=== PATIENT | male | born 1945 | race Caucasian/White ===

== ENCOUNTER 2016-10-01 11:05 | Observation (INO) ==
--- NOTE | 2016-10-01 11:32 | Emergency Department Note ---
Disposition Clinical Impression: Bradycardia with 41-50 beats per minute Disposition: Admitted As Inpatient Condition: Fair Referrals: Yamini Shepherd MD [Primary Care Provider] - Forms: ED Satisfaction Letter Time of Disposition: 13:57 (Jeffrey radhika [facility]) General Adult HPI - General Chief complaint: ED Back Pain/Injury Stated complaint: back pain, pale and clammy Time Seen by Provider: 10/01/16 11:15 Source: patient, other (caregiver) Mode of arrival: ambulatory Limitations: no limitations, altered mental status (DD) Nursing Notes Reviewed: Yes Vital Signs Reviewed: Yes - History of Present Illness HPI Narrative: Patient unable to provide much history in regards to what is going on caregiver states that they are concerned because he became pale and diaphoretic when he stood up they think that he appears to be bloated around his ostomy site they are unable to tell me what his sugars are not family check him once a week they deny noting as if his blood pressure is up or down the caregiver that is with him states I do not know if his colostomy is working I only see him in the late morning she provides very little additional history Onset (ago): day(s) (-2) Location: abdomen Radiation: non-radiation Pain Scale: 0 Consistency: constant Improves with: nothing Worsens with: nothing Associated symptoms: Reports: diaphoresis, nausea/vomiting, syncope, weakness. Denies: confusion, chest pain, cough, fever/chills, headaches, loss of appetite , malaise, seizure, shortness of breath Treatments Prior to Arrival: none - Related Data Home Medications Medication Instructions Recorded Confirmed Acetaminophen [Tylenol] 650 mg PO Q4HR PRN 04/21/15 10/10/15 Alendronate Sodium [Fosamax] 70 mg PO TH 04/21/15 10/10/15 Atorvastatin [Lipitor] 40 mg PO HS 04/21/15 10/10/15 Calcium Carbonate/Vitamin D2 1 each PO DAILY 04/21/15 10/10/15 [Oyster Shell Calcium-Vit D Tab] Cholecalciferol (Vitamin D3) 1,000 unit PO DAILY 04/21/15 10/10/15 [Vitamin D3] Docusate Sodium [Colace] 200 mg PO BID 04/21/15 10/10/15 FLUoxetine HCl [Prozac] 20 mg PO DAILY 04/21/15 10/10/15 Folic Acid 1 mg PO DAILY 04/21/15 10/10/15 Furosemide [Lasix] 40 mg PO DAILY 04/21/15 10/10/15 Gemfibrozil [Lopid] 600 mg PO BID 04/21/15 10/10/15 Ibuprofen [Motrin] 400 mg PO Q4HR PRN 04/21/15 10/10/15 Lisinopril [Zestril] 10 mg PO DAILY 04/21/15 10/10/15 Magnesium Hydroxide [Milk of 30 ml PO DAILY PRN 04/21/15 10/10/15 Magnesia] Metformin HCl [Glucophage] 1,000 mg PO BID 04/21/15 10/10/15 Polyethylene Glycol 3350 [MiraLAX 15 gm PO BID PRN #0 04/21/15 10/10/15 bowel prep] carBAMazepine [Tegretol] 400 mg PO HS 04/21/15 10/10/15 clonazePAM [Klonopin] 0.5 mg PO BID 04/21/15 10/10/15 Albuterol Neb [Proventil Neb] 2.5 mg IH Q4H PRN 10/10/15 10/10/15 Mylanta 30 ml PO Q4H PRN 10/10/15 10/10/15 [place]-3 Fatty Acids/Fish Oil 1 each PO BID 10/10/15 10/10/15 [[place]-3 Fish Oil 1,000 mg Sfgl] carBAMazepine [Tegretol] 200 mg PO QAM 10/10/15 10/10/15 Cariprazine HCl [Vraylar] 1.5 mg PO 10/01/16 Previous Rx's Medication Instructions Recorded Aspirin 81 mg PO DAILY #30 tab.chew 04/29/15 Metoprolol XL (24 HR) Succ [Toprol 12.5 mg PO DAILY #30 tab.er.24h 04/29/15 Xl] Allergies Allergy/AdvReac Type Severity Reaction Status Date / Time No Known Allergies Allergy Verified 10/10/15 09:12 All systems ED: reviewed and negative except as stated. Review of Systems: As Per HPI Limitations: ROS unobtainable due to patients medical condition (DD and very poor historian caregiver poor on supplemental information) Constitutional: Reports: weakness. Denies: fever, chills Eyes: Denies: eye pain ENT ED: Denies: ear pain Cardiovascular: Reports: syncope. Denies: chest pain, palpitations, dyspnea on exertion Respiratory: Denies: cough, dyspnea, wheezes Gastrointestinal: Reports: abdominal pain, nausea. Denies: vomiting Genitourinary: Denies: urgency, dysuria, frequency Musculoskeletal: Denies: back pain Integumentary: Denies: rash, abrasion Neurological: Denies: headache Psychiatric: Denies: anxiety Endocrine: Denies: fatigue Hematological/Lymphatic: Denies: easy bleeding Allergic/Immunologic: Denies: facial swelling Past Medical History - Past Medical History Attestation: Yes The following information was validated with the patient. Source: patient, old records reviewed, nursing notes reviewed Medical history: Reports: asthma, coronary artery disease, diabetes, myocardial infarction, osteoporosis, other Surgical history: Reports: colostomy Psychiatric history: Reports: anxiety, bipolar, other - Social History Smoking Status: Never smoker Smokeless Tobacco Status: No Alcohol use: Reports: none Drug use: Reports: none Physical Exam - General Limitations: altered mental status (DD) General appearance: alert, in no apparent distress - Head Head exam: atraumatic, normocephalic, normal inspection - Eye Eye exam: Present: normal appearance, PERRL, EOMI - ENT ENT exam: normal exam, normal oropharynx, mucous membranes moist, TM's normal bilaterally, normal external ear exam - Neck Neck exam: Present: normal inspection, full ROM, trachea midline - Chest Chest inspection: Present: normal inspection, symmetric chest wall rise - Respiratory Respiratory exam: Present: normal lung sounds bilaterally - Cardiovascular Cardiovascular exam: Present: regular rate, normal rhythm, normal heart sounds - Abdominal Exam Abdominal exam: Present: soft, tenderness, distention, guarding, hypoactive bowel sounds. Absent: normal bowel sounds, mass, pulsatile mass - Extremities Exam Extremities exam: Present: normal inspection, full ROM, normal capillary refill , other (dwight hose Left leg). Absent: tenderness, joint swelling - Expanded Lower Extremity Exam Neurovascular/Tendon exam: Present: normal capillary refill, normal fine/light touch Gait: observed and normal - Back Exam Back exam: Present: normal inspection, full ROM. Absent: muscle spasm - Neurological Exam Neurological exam: Present: alert, CN II-XII intact - Psychiatric Psychiatric exam: Present: normal affect, normal mood - Skin Skin exam: Present: warm, dry, intact, normal color Course Course Narrative: 70-year-old male individual coming to the emergency room with a difficult history to obtain other than he is had episodes of diaphoresis and near syncope at the care facility he states that his back hurts but they tell me that he says this all the time carekeepers state that they noted the area around his ostomy site appears to be bloated and distended but then states belly appears to be that well as result family physician has not been contacted transferred to us for further management - Reevaluation(s) Reevaluation #1: he continues to be bradycardic with rates less than 60 hovering between 44 and 54 and evidence shows congestive heart failure as result will admitted for observation and make sure that there is no other underlying etiology serial enzymes because he is developmentally disabled unable to provide us adequate history only thing he can say is that he wants crackers as result admitted for observation Vital Signs Temperature 96.1 F L 10/01/16 11:07 Pulse Rate 50 10/01/16 11:07 Respiratory Rate 18 10/01/16 11:07 Blood Pressure 162/93 10/01/16 11:07 O2 Sat by Pulse Oximetry 95 10/01/16 11:07 Temperature 96.1 F L 10/01/16 11:31 Pulse Rate 54 10/01/16 13:14 Respiratory Rate 18 10/01/16 13:14 Blood Pressure 115/79 10/01/16 13:14 O2 Sat by Pulse Oximetry 94 10/01/16 13:14 Oxygen Delivery Oxygen Delivery Room Air Medical Decision Making - Medical Records Medical records reviewed: Yes I reviewed the patient's medical records. - Lab Data Lab results reviewed: Yes I reviewed the patient's lab results. Result diagrams: 10/01/16 11:44 10/01/16 11:44 Lab Results 10/01/16 10/01/16 10/01/16 Range/Units 11:44 11:44 11:44 WBC 6.9 (4.3-11.1) K/mcL RBC 4.06 L (4.19-5.50) M/mcL Hgb 12.7 L (12.9-16.9) g/dL Hct 35.7 L (37.5-50.1) % MCV 87.9 (83.0-100.0) fL MCH 31.3 (28.0-33.3) pg MCHC 35.6 H (31.6-35.5) g/dL RDW 14.2 (11.5-14.5) % Plt Count 150 (140-400) K/mcL MPV 10.0 (9.4-12.4) fL Immature Gran % 1.3 (0-4) % Seg Neutrophils % 71.0 % Lymphocytes % 17.1 % Monocytes % 7.4 % Eosinophils % 2.8 % Basophils % 0.4 % Neutrophils # 4.9 (1.6-8.9) K/mcL Lymphocytes # 1.2 (0.6-4.6) K/mcL Monocytes # 0.5 (0.0-1.3) K/mcL Eosinophils # 0.2 (0.0-0.6) K/mcL Basophils # 0.0 (0.0-0.2) K/mcL PT (9.4-12.1) Seconds INR APTT 35.5 (26.0-36.0) Seconds VBG Lactic Acid (0.5-2.2) mmol/L Sodium 130 L (136-145) mEq/L Potassium 4.5 (3.5-4.5) mEq/L Chloride 93 L (98-109) mEq/L Carbon Dioxide 25 (19-29) mEq/L BUN 16 (8-26) mg/dL Creatinine 1.11 (0.72-1.25) mg/dL Est GFR ( Amer) > 60 (> 60) Est GFR (Non-Af Amer) > 60 (> 60) BUN/Creatinine Ratio 14 (6-26) Glucose 134 H (70-99) mg/dL Calculated Osmolality 273 L (280-300) Calcium 9.2 (8.6-10.8) mg/dL Total Bilirubin 0.4 (0.2-1.2) mg/dL AST 43 H (5-34) Units/L ALT 32 (0-55) Units/L Alkaline Phosphatase 47 (38-126) Units/L Troponin I (0-0.03) ng/mL B-Natriuretic Peptide (0-100) pg/mL Serum Total Protein 7.0 (6.0-8.3) g/dL Albumin 3.9 (3.5-5.0) g/dL Globulin 3.1 (2.4-3.5) g/dL Albumin/Globulin Ratio 1.3 (1.1-2.2) Lipase (8-78) Units/L TSH (0.350-4.840) mcIU/mL Urine Color (Yellow) Urine Clarity (Clear) Urine pH (5.0-8.0) pH Units Ur Specific [place] (1.010-1.025) Urine Protein (Neg-Trace) mg/dL Urine Glucose (UA) (Normal) mg/dL Urine Ketones (Negative) mg/dL Urine Blood (Negative) Urine Nitrite (Negative) Urine Bilirubin (Negative) Urine Urobilinogen (Normal) mg/dL Ur Leukocyte Esterase (Negative) Ur Culture Indicated? (NO) Carbamazepine (4.0-12.0) mcg/mL 10/01/16 10/01/16 10/01/16 Range/Units 11:44 11:44 11:44 WBC (4.3-11.1) K/mcL RBC (4.19-5.50) M/mcL Hgb (12.9-16.9) g/dL Hct (37.5-50.1) % MCV (83.0-100.0) fL MCH (28.0-33.3) pg MCHC (31.6-35.5) g/dL RDW (11.5-14.5) % Plt Count (140-400) K/mcL MPV (9.4-12.4) fL Immature Gran % (0-4) % Seg Neutrophils % % Lymphocytes % % Monocytes % % Eosinophils % % Basophils % % Neutrophils # (1.6-8.9) K/mcL Lymphocytes # (0.6-4.6) K/mcL Monocytes # (0.0-1.3) K/mcL Eosinophils # (0.0-0.6) K/mcL Basophils # (0.0-0.2) K/mcL PT 13.7 H (9.4-12.1) Seconds INR 1.3 APTT (26.0-36.0) Seconds VBG Lactic Acid (0.5-2.2) mmol/L Sodium (136-145) mEq/L Potassium (3.5-4.5) mEq/L Chloride (98-109) mEq/L Carbon Dioxide (19-29) mEq/L BUN (8-26) mg/dL Creatinine (0.72-1.25) mg/dL Est GFR ( Amer) (> 60) Est GFR (Non-Af Amer) (> 60) BUN/Creatinine Ratio (6-26) Glucose (70-99) mg/dL Calculated Osmolality (280-300) Calcium (8.6-10.8) mg/dL Total Bilirubin (0.2-1.2) mg/dL AST (5-34) Units/L ALT (0-55) Units/L Alkaline Phosphatase (38-126) Units/L Troponin I 0.00 (0-0.03) ng/mL B-Natriuretic Peptide 105 H (0-100) pg/mL Serum Total Protein (6.0-8.3) g/dL Albumin (3.5-5.0) g/dL Globulin (2.4-3.5) g/dL Albumin/Globulin Ratio (1.1-2.2) Lipase (8-78) Units/L TSH (0.350-4.840) mcIU/mL Urine Color (Yellow) Urine Clarity (Clear) Urine pH (5.0-8.0) pH Units Ur Specific [place] (1.010-1.025) Urine Protein (Neg-Trace) mg/dL Urine Glucose (UA) (Normal) mg/dL Urine Ketones (Negative) mg/dL Urine Blood (Negative) Urine Nitrite (Negative) Urine Bilirubin (Negative) Urine Urobilinogen (Normal) mg/dL Ur Leukocyte Esterase (Negative) Ur Culture Indicated? (NO) Carbamazepine (4.0-12.0) mcg/mL 10/01/16 10/01/16 10/01/16 Range/Units 11:44 11:44 12:48 WBC (4.3-11.1) K/mcL RBC (4.19-5.50) M/mcL Hgb (12.9-16.9) g/dL Hct (37.5-50.1) % MCV (83.0-100.0) fL MCH (28.0-33.3) pg MCHC (31.6-35.5) g/dL RDW (11.5-14.5) % Plt Count (140-400) K/mcL MPV (9.4-12.4) fL Immature Gran % (0-4) % Seg Neutrophils % % Lymphocytes % % Monocytes % % Eosinophils % % Basophils % % Neutrophils # (1.6-8.9) K/mcL Lymphocytes # (0.6-4.6) K/mcL Monocytes # (0.0-1.3) K/mcL Eosinophils # (0.0-0.6) K/mcL Basophils # (0.0-0.2) K/mcL PT (9.4-12.1) Seconds INR APTT (26.0-36.0) Seconds VBG Lactic Acid 2.3 H (0.5-2.2) mmol/L Sodium (136-145) mEq/L Potassium (3.5-4.5) mEq/L Chloride (98-109) mEq/L Carbon Dioxide (19-29) mEq/L BUN (8-26) mg/dL Creatinine (0.72-1.25) mg/dL Est GFR ( Amer) (> 60) Est GFR (Non-Af Amer) (> 60) BUN/Creatinine Ratio (6-26) Glucose (70-99) mg/dL Calculated Osmolality (280-300) Calcium (8.6-10.8) mg/dL Total Bilirubin (0.2-1.2) mg/dL AST (5-34) Units/L ALT (0-55) Units/L Alkaline Phosphatase (38-126) Units/L Troponin I (0-0.03) ng/mL B-Natriuretic Peptide (0-100) pg/mL Serum Total Protein (6.0-8.3) g/dL Albumin (3.5-5.0) g/dL Globulin (2.4-3.5) g/dL Albumin/Globulin Ratio (1.1-2.2) Lipase 35 (8-78) Units/L TSH 1.478 (0.350-4.840) mcIU/mL Urine Color (Yellow) Urine Clarity (Clear) Urine pH (5.0-8.0) pH Units Ur Specific [place] (1.010-1.025) Urine Protein (Neg-Trace) mg/dL Urine Glucose (UA) (Normal) mg/dL Urine Ketones (Negative) mg/dL Urine Blood (Negative) Urine Nitrite (Negative) Urine Bilirubin (Negative) Urine Urobilinogen (Normal) mg/dL Ur Leukocyte Esterase (Negative) Ur Culture Indicated? (NO) Carbamazepine 7.5 (4.0-12.0) mcg/mL 10/01/16 Range/Units 12:52 WBC (4.3-11.1) K/mcL RBC (4.19-5.50) M/mcL Hgb (12.9-16.9) g/dL Hct (37.5-50.1) % MCV (83.0-100.0) fL MCH (28.0-33.3) pg MCHC (31.6-35.5) g/dL RDW (11.5-14.5) % Plt Count (140-400) K/mcL MPV (9.4-12.4) fL Immature Gran % (0-4) % Seg Neutrophils % % Lymphocytes % % Monocytes % % Eosinophils % % Basophils % % Neutrophils # (1.6-8.9) K/mcL Lymphocytes # (0.6-4.6) K/mcL Monocytes # (0.0-1.3) K/mcL Eosinophils # (0.0-0.6) K/mcL Basophils # (0.0-0.2) K/mcL PT (9.4-12.1) Seconds INR APTT (26.0-36.0) Seconds VBG Lactic Acid (0.5-2.2) mmol/L Sodium (136-145) mEq/L Potassium (3.5-4.5) mEq/L Chloride (98-109) mEq/L Carbon Dioxide (19-29) mEq/L BUN (8-26) mg/dL Creatinine (0.72-1.25) mg/dL Est GFR ( Amer) (> 60) Est GFR (Non-Af Amer) (> 60) BUN/Creatinine Ratio (6-26) Glucose (70-99) mg/dL Calculated Osmolality (280-300) Calcium (8.6-10.8) mg/dL Total Bilirubin (0.2-1.2) mg/dL AST (5-34) Units/L ALT (0-55) Units/L Alkaline Phosphatase (38-126) Units/L Troponin I (0-0.03) ng/mL B-Natriuretic Peptide (0-100) pg/mL Serum Total Protein (6.0-8.3) g/dL Albumin (3.5-5.0) g/dL Globulin (2.4-3.5) g/dL Albumin/Globulin Ratio (1.1-2.2) Lipase (8-78) Units/L TSH (0.350-4.840) mcIU/mL Urine Color Yellow (Yellow) Urine Clarity Clear (Clear) Urine pH 5.5 (5.0-8.0) pH Units Ur Specific [place] 1.015 (1.010-1.025) Urine Protein Negative (Neg-Trace) mg/dL Urine Glucose (UA) Normal (Normal) mg/dL Urine Ketones Negative (Negative) mg/dL Urine Blood Negative (Negative) Urine Nitrite Negative (Negative) Urine Bilirubin Negative (Negative) Urine Urobilinogen Normal (Normal) mg/dL Ur Leukocyte Esterase Negative (Negative) Ur Culture Indicated? NO (NO) Carbamazepine (4.0-12.0) mcg/mL - Radiology Data Radiology results reviewed: Yes I reviewed the patient's radiology results. ITS Impressions Abdomen/Pelvis CT 10/01/16 11:27 IMPRESSION: No significant abdominopelvic process demonstrated D/ / Tej Faye MD / eTj Faye MD Interpreting Provider: Tej Faye MD Chest X-Ray 10/01/16 11:27 IMPRESSION: Cardiomegaly with pulmonary vascular congestion centrally. No other acute process. D/ / John Valentin MD / John Valentin MD Interpreting Provider: John Valentin MD - EKG Data EKG #1 EKG attestation: Yes I reviewed and interpreted this EKG. EKG results narrative: EKG sinus bradycardia first-degree AV block with a prolonged TN incomplete bundle-branch block on the right rate 51 TN 223 QRS 105 DT 429 axis -18 Critical Care Time Critical Care Time: No
[2016-10-01 11:55] LABS: Basophils % 0.4 %; Eosinophils # 0.2 K/mcL (0.0-0.6); Eosinophils % 2.8 %; Hematocrit 35.7 % (37.5-50.1); Hemoglobin 12.7 g/dL (12.9-16.9); Immature Granulocytes % 1.3 % (0-4); Lymphocytes # 1.2 K/mcL (0.6-4.6); Lymphocytes % 17.1 %; Mean Corpuscular HGB Conc 35.6 g/dL (31.6-35.5); Mean Corpuscular Hemoglobin 31.3 pg (28.0-33.3); Mean Corpuscular Volume 87.9 fL (83.0-100.0); Monocytes # 0.5 K/mcL (0.0-1.3); Monocytes % 7.4 %; Neutrophils # 4.9 K/mcL (1.6-8.9); Platelet Count 150 K/mcL (140-400); Red Blood Count 4.06 M/mcL (4.19-5.50); Red Cell Distribution Width 14.2 % (11.5-14.5)
[2016-10-01 12:05] LABS: INR 1.3; Prothrombin Time 13.7 Seconds (9.4-12.1)
[2016-10-01 12:17] LABS: Alanine Aminotransferase 32 Units/L (0-55); Albumin 3.9 g/dL (3.5-5.0); Albumin/Globulin Ratio 1.3 (1.1-2.2); Alkaline Phosphatase 47 Units/L (38-126); Aspartate Amino Transferase 43 Units/L (5-34); BUN/Creatinine Ratio 14 (6-26); Bilirubin,Total 0.4 mg/dL (0.2-1.2); Blood Urea Nitrogen 16 mg/dL (8-26); Calcium 9.2 mg/dL (8.6-10.8); Carbon Dioxide 25 mEq/L (19-29); Chloride 93 mEq/L (98-109); Globulin 3.1 g/dL (2.4-3.5); Glucose 134 mg/dL (70-99); Osmolality,Calculated 273 (280-300); Potassium 4.5 mEq/L (3.5-4.5); Sodium 130 mEq/L (136-145); eGFR For African Americans > 60 (> 60); eGFR For Non-African Americans > 60 (> 60)
[2016-10-01 12:37] LABS: Thyroid Stimulating Hormone 1.478 mcIU/mL (0.350-4.840)
[2016-10-01] MEDS ORDERED: Bumetanide 1 MG/4 ML VIAL IVP ONE (12:48)
[2016-10-01 12:57] LABS: Bilirubin,Urine Negative (Negative); Blood,Urine Negative (Negative); Clarity,Urine Clear (Clear); Color,Urine Yellow (Yellow); Glucose,Urine (UA) Normal (Normal); Ketones,Urine Negative (Negative); Leukocyte Esterase,Urine Negative (Negative); Nitrite,Urine Negative (Negative); PH,Urine 5.5 pH Units (5.0-8.0); Protein,Urine Negative (Neg-Trace); Specific Gravity,Urine 1.015 (1.010-1.025); Urobilinogen,Urine Normal (Normal)
[2016-10-01] MEDS ORDERED: Mag Hydrox/Al Hydrox/Simeth 30 ML UDC PO PRN (14:27)
[2016-10-01] MEDS ORDERED: Acetaminophen 325 MG TABLET PO PRN ×2 (14:27)
[2016-10-01] MEDS ORDERED: D5% in Water 1,000 ML IVC PRN (14:27)
[2016-10-01] MEDS ORDERED: Naloxone 0.4 MG/ML INJ IVP PRN (14:27)
[2016-10-01] MEDS ORDERED: *HR* Dextrose 50 % in Water (Syg) 50 ML SYRINGE IVP PRN (14:27)
[2016-10-01] MEDS ORDERED: Albuterol 2.5 MG/3 ML NEBULIZER IH PRN (14:27)
[2016-10-01] MEDS ORDERED: Ondansetron ODT 4 MG TAB.RAPDIS SL PRN (14:27)
[2016-10-01] MEDS ORDERED: Dextrose Gel 15 GM PO PRN ×2 (14:27)
[2016-10-01] MEDS ORDERED: MOM Conc 10 ML UD.LIQ PO PRN (14:27)
[2016-10-01] MEDS ORDERED: Ibuprofen 400 MG TABLET PO PRN ×2 (14:27)
[2016-10-01] MEDS: Insulin LISPRO 300 UNITS/3 ML VIAL SQ SCH ×2 (15:45→16:14)
--- NOTE | 2016-10-01 18:07 | Internal Med History&Physical ---
Date of Encounter: 10/01/16 Time of Encounter: 17:45 Assessment and Plan (1) Bradycardia with 41-50 beats per minute Current visit: Yes Status: Acute We will hold Toprol-XL and monitor heart rate. (2) Diabetes mellitus Current visit: No Status: Acute Hemoglobin A1c was 5.8% on 09/13/2016. Continue Glucophage Qualifiers: Diabetes mellitus type: type 2 Diabetes mellitus complication status: without complication Diabetes mellitus nursing home insulin use: without terminal clerk use Qualified Code(s): E11.9 - Type 2 diabetes mellitus without complications (3) Elevated lactic acid level Current visit: Yes Status: Acute Etiology not obvious. Will recheck in a.m. (4) Anemia Current visit: Yes Status: Acute Present on most labs in the last 18 months. We will check anemia testing in a.m. Qualifiers: Anemia type: unspecified type Qualified Code(s): D64.9 - Anemia, unspecified Internal Medicine - H&P: HPI Chief complaint: Bradycardia, weakness Admitted From: Home Plans for Post Hospital Care: Home History of present illness: Mr. Hinojosa is a 70 year old male who was sent to emergency room after caregivers at his long-term reported he had bradycardia and became pale and diaphoretic on standing. He was evaluated in emergency room and found to have bradycardia with mild anemia. WBC and differential were normal but there was elevation of lactic acid. [facility]. He has MRDD and could not provide any additional history. Past Med Surg Social Fam HX - Past Medical History Medical history: asthma, coronary artery disease, diabetes, myocardial infarction, osteoporosis, other Psychiatric history: anxiety, bipolar, other - Past Surgical History Surgical History: colostomy - Social History Smoking Status: Never smoker Smokeless Tobacco Status: No Alcohol use: none Drug use: none Internal Medicine - H&P: Meds Acetaminophen [Tylenol] 650 mg PO Q4HR PRN 04/21/15 [History] Alendronate Sodium [Fosamax] 70 mg PO TH 04/21/15 [History] Atorvastatin [Lipitor] 40 mg PO HS 04/21/15 [History] Calcium Carbonate/Vitamin D2 [Oyster Shell Calcium-Vit D Tab] 1 each PO DAILY [History] Cholecalciferol (Vitamin D3) [Vitamin D3] 1,000 unit PO DAILY 04/21/15 [History] Docusate Sodium [Colace] 200 mg PO BID 04/21/15 [History] FLUoxetine HCl [Prozac] 20 mg PO DAILY 04/21/15 [History] Folic Acid 1 mg PO DAILY 04/21/15 [History] Furosemide [Lasix] 40 mg PO DAILY 04/21/15 [History] Gemfibrozil [Lopid] 600 mg PO BID 04/21/15 [History] Ibuprofen [Motrin] 400 mg PO Q4HR PRN 04/21/15 [History] Lisinopril [Zestril] 10 mg PO DAILY 04/21/15 [History] Magnesium Hydroxide [Milk of Magnesia] 30 ml PO DAILY PRN 04/21/15 [History] Metformin HCl [Glucophage] 1,000 mg PO BID 04/21/15 [History] Polyethylene Glycol 3350 [MiraLAX bowel prep] 15 gm PO BID PRN #0 04/21/15 [ History] carBAMazepine [Tegretol] 400 mg PO HS 04/21/15 [History] clonazePAM [Klonopin] 0.5 mg PO BID 04/21/15 [History] Aspirin 81 mg PO DAILY #30 tab.chew 04/29/15 [Rx] Metoprolol XL (24 HR) Succ [Toprol Xl] 12.5 mg PO DAILY #30 tab.er.24h 04/29/15 [Rx] Albuterol Neb [Proventil Neb] 2.5 mg IH Q4H PRN 10/10/15 [History] Mylanta 30 ml PO Q4H PRN 10/10/15 [History] [place]-3 Fatty Acids/Fish Oil [[place]-3 Fish Oil 1,000 mg Sfgl] 1 each PO BID 04/25 [History] carBAMazepine [Tegretol] 200 mg PO QAM 10/10/15 [History] Cariprazine HCl [Vraylar] 1.5 mg PO 10/01/16 [History] Allergies No Known Allergies Allergy (Verified 10/10/15 09:12) All Systems PM: A 10-system review of systems was performed and is negative for pertinent findings except as documented above in the HPI. Review of systems: Unavailable from the patient. Available records show diagnosis of MRDD, ADHD, bipolar disorder, OCD, and generalized anxiety disorder. He has history of colon polyps. He had diverticulitis with colonic obstruction and required development of colostomy with Gregg pouch in 2012. From review of medications it appears he likely has diagnoses of hyperlipidemia, hypertension, and DM 2. - Constitutional Vitals: Temp Pulse Resp BP Pulse Ox 97.9 F 55 20 119/75 95 10/01/16 14:35 10/01/16 14:35 10/01/16 14:35 10/01/16 14:35 10/01/16 14:35 Exam: Gen.: He is a well-developed well-nourished male lying in bed who appears in no acute distress. HEENT: Head is atraumatic and normocephalic. Eyes: EOMI. There is no scleral icterus. Mouth: Mucosa is moist. Neck: Supple and nontender. There is no thyromegaly or adenopathy noted. Heart: Regular without murmurs gallops or ectopics Lungs: No wheezes or crackles are heard. Abdomen: No masses or guarding are noted. He has an ostomy bag in the left lower abdominal area. There is a well-healed longitudinal midline scar. Bowel sounds are diminished. There is no significant tenderness to palpation. Extremities: There is no cyanosis edema or clubbing noted. Dorsalis pedis and posterior tibial pulses are 1-2 over 2 bilaterally. Neurologic: Mental status: He is awake but could not answer questions in a meaningful way. He has echolalia frequently. Cranial nerves: Smile is symmetric. Forehead wrinkles bilaterally. Tongue protrudes midline. EOMI. Motor: He does not follow commands to move his arms but has equal arm tone on passive range of motion and moves them well randomly. No further neurologic testing is attempted. Skin: Warm and dry. Internal Med - H&P Results - Labs CBC & Chem 7: 10/01/16 11:44 10/01/16 11:44
--- NOTE | 2016-10-01 18:10 | Electrocardiograph Report ---
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
[2016-10-01] MEDS: clonazePAM 0.5 MG TABLET PO SCH (20:58)
[2016-10-01] MEDS ORDERED: OMEGA PO SCH (21:00)
[2016-10-01] MEDS ORDERED: FATTY ACIDS PO SCH (21:00)
[2016-10-01] MEDS ORDERED: carBAMazepine 200 MG TABLET PO SCH (21:00)
[2016-10-01] MEDS ORDERED: FISH OIL PO SCH (21:00)
[2016-10-01] MEDS ORDERED: *HR* Metformin 500 MG TABLET PO SCH (21:00)
[2016-10-02 07:02] LABS: Basophils % 0.4 %; Eosinophils % 0.4 %; Hematocrit 33.5 % (37.5-50.1); Hemoglobin 12.1 g/dL (12.9-16.9); Immature Granulocytes % 0.5 % (0-4); Lymphocytes # 1.9 K/mcL (0.6-4.6); Mean Corpuscular HGB Conc 36.1 g/dL (31.6-35.5); Mean Corpuscular Hemoglobin 31.5 pg (28.0-33.3); Mean Corpuscular Volume 87.2 fL (83.0-100.0); Mean Platelet Volume 9.8 fL (9.4-12.4); Monocytes # 0.7 K/mcL (0.0-1.3); Monocytes % 9.5 %; Neutrophils # 4.6 K/mcL (1.6-8.9); Platelet Count 147 K/mcL (140-400); Red Blood Count 3.84 M/mcL (4.19-5.50); Red Cell Distribution Width 14.3 % (11.5-14.5); Segmented Neutrophils % 63.2 %
[2016-10-02 07:25] LABS: BUN/Creatinine Ratio 17 (6-26); Blood Urea Nitrogen 16 mg/dL (8-26); Calcium 8.8 mg/dL (8.6-10.8); Carbon Dioxide 21 mEq/L (19-29); Chloride 96 mEq/L (98-109); Glucose 121 mg/dL (70-99); Magnesium 2.1 mg/dL (1.6-2.6); Osmolality,Calculated 272 (280-300); Potassium 4.7 mEq/L (3.5-4.5); Sodium 130 mEq/L (136-145); eGFR For African Americans > 60 (> 60); eGFR For Non-African Americans > 60 (> 60)
[2016-10-02] MEDS ORDERED: Bumetanide 1 MG/4 ML VIAL IVP SCH (08:00)
[2016-10-02] MEDS: Insulin LISPRO 300 UNITS/3 ML VIAL SQ SCH ×2 (08:02→11:18)
[2016-10-02] MEDS ORDERED: *HR* Metformin 500 MG TABLET PO SCH (09:00)
[2016-10-02] MEDS ORDERED: VITAMIN D2 PO SCH (09:00)
[2016-10-02] MEDS ORDERED: Cholecalciferol (D-3) 1,000 UNIT TABLET PO SCH (09:00)
[2016-10-02] MEDS ORDERED: Metoprolol XL (24 HR) Succ 25 MG TAB.ER.24H PO SCH (09:00)
[2016-10-02] MEDS ORDERED: Folic Acid 1 MG TABLET PO SCH (09:00)
[2016-10-02] MEDS ORDERED: CALCIUM CARBONATE PO SCH (09:00)
[2016-10-02] MEDS ORDERED: Aspirin Enteric Coated 81 MG Tablet PO SCH (09:00)
[2016-10-02] MEDS ORDERED: carBAMazepine 200 MG TABLET PO SCH (09:00)
[2016-10-02] MEDS ORDERED: FLUoxetine 20 MG CAPSULE PO SCH (09:00)
[2016-10-02 09:27] VITALS: BP 121/71
[2016-10-02] MEDS: clonazePAM 0.5 MG TABLET PO SCH (09:36)
--- NOTE | 2016-10-02 10:14 | Discharge Summary ---
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 use Qualified Code(s): E11.9 - Type 2 diabetes mellitus without complications (3) Elevated lactic acid level Priority: Secondary Status: Acute (4) Anemia Priority: Secondary Status: Acute Qualifiers: Anemia type: unspecified type Qualified Code(s): D64.9 - Anemia, unspecified - Discharge Medications Home Medications: Acetaminophen [Tylenol] 650 mg PO Q4HR PRN 04/21/15 [History] Alendronate Sodium [Fosamax] 70 mg PO TH 04/21/15 [History] Atorvastatin [Lipitor] 40 mg PO HS 04/21/15 [History] Calcium Carbonate/Vitamin D2 [Oyster Shell Calcium-Vit D Tab] 1 each PO DAILY [History] Cholecalciferol (Vitamin D3) [Vitamin D3] 1,000 unit PO DAILY 04/21/15 [History] Docusate Sodium [Colace] 200 mg PO BID 04/21/15 [History] FLUoxetine HCl [Prozac] 20 mg PO DAILY 04/21/15 [History] Folic Acid 1 mg PO DAILY 04/21/15 [History] Furosemide [Lasix] 40 mg PO DAILY 04/21/15 [History] Gemfibrozil [Lopid] 600 mg PO BID 04/21/15 [History] Lisinopril [Zestril] 10 mg PO DAILY 04/21/15 [History] Magnesium Hydroxide [Milk of Magnesia] 30 ml PO DAILY PRN 04/21/15 [History] Metformin HCl [Glucophage] 1,000 mg PO BID 04/21/15 [History] Polyethylene Glycol 3350 [MiraLAX bowel prep] 15 gm PO BID PRN #0 04/21/15 [ History] carBAMazepine [Tegretol] 400 mg PO HS 04/21/15 [History] clonazePAM [Klonopin] 0.5 mg PO BID 04/21/15 [History] Albuterol Neb [Proventil Neb] 2.5 mg IH Q4H PRN 08/02/16 [History] Mylanta 30 ml PO Q4H PRN 10/10/15 [History] [place]-3 Fatty Acids/Fish Oil [[place]-3 Fish Oil 1,000 mg Sfgl] 1 each PO BID 04/25 [History] carBAMazepine [Tegretol] 200 mg PO QAM 10/10/15 [History] Cariprazine HCl [Vraylar] 1.5 mg PO 10/01/16 [History] Aspirin 81 mg PO Q48H #30 tab.chew 10/02/16 [Rx] Allergies/Adverse Reactions: Allergies No Known Allergies Allergy (Verified 10/10/15 09:12) Date of admission: 10/01/16 14:04 Primary care physician: Yamini Shepherd - Patient Status Disposition: Home, Self-Care Condition: Fair Overall status at discharge: patient is progressing back to baseline - Discharge Instructions Follow Up With: Yamini Shepherd MD [Primary Care Provider] - 1 week - Diet and Activity Activity: resume usual activities as tolerated Diet: advance to your usual diet Hospital course: Mr. Hinojosa is a 71 year old male who was sent to emergency room after [facility] reported he had bradycardia and became pale and diaphoretic on standing. He was evaluated in emergency room and found to have bradycardia with mild anemia. WBC and differential were normal but there was elevation of lactic acid. He was admitted to [facility] floor for ongoing care needs. Initial orders were written by the emergency room physician. I saw him on October 01 and performed the history and physical. Toprol-XL was held. His heart rate improved to 50-60 by the following day. Blood pressure remains stable. He will remain off Toprol at discharge. Repeat lactic acid level returned slightly elevated at 2.6. Etiology is not obvious. No evidence of sepsis or appearance of pain. This can be followed as an outpatient. Creatinine decreased to 0.92 with IV fluids. Hemoglobin decreased to 12.1 on the day of discharge. Anemia testing was ordered with results pending at the time of discharge. I will decrease his aspirin to 81 mg every other day and discontinue NSAID use. When I saw him on October 02 he appeared stable for discharge back to the [facility] where he will follow with Dr. Shepherd. - Time Spent with Patient Total time spent providing and/or coordinating discharge services: - Constitutional Vitals: Temp Pulse Resp BP Pulse Ox 98.9 F 51 18 121/71 90 10/02/16 06:55 10/02/16 09:26 10/02/16 06:55 10/02/16 09:26 10/02/16 09:26
[2016-10-02 10:42] LABS: % Iron Saturation 17 % (20-55); Iron 56 mcg/dL (65-175); Transferrin 241 mg/dL (174-364)
[2016-10-02 11:25] LABS: Ferritin 51 ng/ml (22-275)
[2016-10-02 11:39] LABS: Folate 14.6 ng/mL (7.0-31.4)
== END 2016-10-02 14:02 | disposition home or self-care (01) ==
LOC: INPPIK 11:05 → EMEROOPIK 11:05 → INPPIK 14:15
PROVIDERS: ADMIT Internal Medicine; ATTEND Internal Medicine